=== PATIENT | female | born 1955 | race Caucasian/White ===

== ENCOUNTER → 2017-08-07 07:20 | Outpatient (CLI) | payer MEDICAID ==
[2015-11-26 09:48] VITALS: BMI 28.9
--- NOTE | ~2017-08-07 | ST ---
PATIENT:CARLOS TORRES ASIF MEDICAL RECORD: [id number] SEX: F LOCATION:[facility] ORDER #: ADMISSION DATE: 08/07/17 AGE OF PATIENT: 62 REFERRING PHYSICIAN: INTERPRETING PHYSICIAN: CHRISTOPHER AYALA MD DATE OF SERVICE: 08/07/2017 PROCEDURE: Nuclear stress test. INDICATION: Chest pain of unknown etiology. She was exercised on standard Lexiscan protocol with 31.9 mCi were injected at peak stress. Rest images were done with 12.6 mCi. FINDINGS: Gated SPECT reveals preserved ejection fraction at 60% with good wall motion and thickening and brightening throughout all segments. SPECT imaging Cardiolite was used as myocardial perfusion agent. There is reversibility anteriorly and apically. This includes the mid apical anterior segments as well as the apex itself. The degree of reversibility is moderate. The amount of myocardial involved is small to moderate. OVERALL IMPRESSION: 1. This is an abnormal nuclear stress test reversible ischemia anteriorly. 2. Gated SPECT reveals a preserved ejection fraction greater than 60%. In this patient with ongoing symptomatology, the current scan does suggest the presence of hemodynamically significant coronary artery disease. We will proceed with coronary angiography to follow up the study. TRANSINT:[id number] Voice Confirmation ID: [id number] DOCUMENT ID: [id number] CHRISTOPHER AYALA MD at 1630 CC: [id number] DICTATION DATE: 08/07/17 1205 PEARL TECHNICIAN: 08/07/17 1538 REG [facility] [address] [place] [address]
[~2017-08-07 07:20] MED LIST: ASPIRIN EC81 MG PO; ATIVAN2 MG PO; CLEOCIN HCL300 MG PO; FISH OIL 1,0001 CA1 PO; FLEXERIL10 MG PO; HYDROCHLOROTH12.5 M1 PO; HYDROCHLOROTHIA25 MG PO; HYDROCODONE-APA1 TAB PO; KLOR-CON 1010 MEQ PO; LIPITOR40 MG PO; PLAVIX75 MG PO; PRAVACHOL10 MG PO; PRILOSEC20 MG PO; ROBAXIN500 MG PO; SYNTHROID125 MCG PO; TENORMIN50 MG PO; ULTRAM50 MG PO; ZOLOFT100 MG PO
== END | disposition home or self-care (01) ==
LOC: D.NM 07:20
DX: R07.9 Chest pain, unspecified (principal); I25.10 Atherosclerotic heart disease of native coronary artery without angina pectoris

== ENCOUNTER 2017-08-21 08:51 | Outpatient (CLI) | payer MEDICAID ==
[~2017-08-21] VITALS: Ht 162.6 cm; Wt 73.6 kg
--- NOTE | ~2017-08-21 | HEMODYNAMI ---
PATIENT:CARLOS TORRES ASIF MEDICAL RECORD: [id number] : 55 LOCATION:[facility] ADMISSION DATE: 08/21/17 Generatedon:08/21/201711:09 Patient name: CARLOS TORRES Patient #: [id number] SSN: : 1955 Date of study: 08/21/2017 Page: Of Hemodynamic Procedure Report Patient Data Patient Demographics Procedure consent was obtained First Name: CARLOS Gender: Female Last Name: BRIAN : 1955 [facility] Initial: ASIF Age: 62 year(s) Patient #: [id number] Race: Unknown Additional ID: [id number] Contact details [address]: [address] [place] [address] State: [place] City: [place] Zip code: [address] Past Medical History Allergies Allergen Reaction Date Comments Reported Penicillins 11/26/2015 Penicillins 08/21/2017 Admission Admission Data Admission Date: 08/21/2017 Admission Time: 8:51 Admit Source: Other Procedure Procedure Types Cath Procedure Diagnostic Procedure [facility] w/Coronaries FFR/IVUS Intra-Coronary IVUS Initial Sedation Charges Moderate Sedation up to 15 minutes PCI Procedure AMI/SVG/KLYSTROM TUBE TESTER PTCA or Stent SVG-BMS/JENNIFER Initial Peripheral Cath Diagnostic Procedure Cath Peripheral Four Vessel Arteriogram Procedure Description Procedure Date Procedure Date: 08/21/2017 Procedure Start Time: 10:44 Procedure End Time: 11:08 Procedure Staff Name Function Johnson Lee MD Performing Physician Eileen Chau RT Monitor Berhane Salmeron RT Scrub Gage Mccullough RN Nurse Procedure Data Cath Procedure Fluoroscopy Diagnostic fluoroscopy Total fluoroscopy Time: 6.3 time: 6.3 min min Diagnostic fluoroscopy Total fluoroscopy dose: 551 dose: 551 mGy mGy Contrast Material Contrast Material Type Amount (ml) Isovue 370 116 Entry Location Entry Primary Successful Side Size Upsize Upsize Entry Closure Succes sful Closure Location (Fr) 1 (Fr) 2 (Fr) Remarks Device Remarks Femoral Right 5 Fr 6 Fr Exoseal artery Short Estimated blood loss: 10 ml Diagnostic catheters Device Type Used For End Catheter Placement MULTIPACK Pigtail 5 Fr LV Angiography catheter MULTIPACK JL 4.0 5Fr Left Coronary catheter Angiography MULTIPACK 3DRC 5Fr Internal mammary catheter arteriography DIAGNOSTIC AR 2 MOD 5 Fr SVG Angiography catheter ([id number]) MULTIPACK 3DRC 5Fr Cervical carotid catheter (common) arteriography MULTIPACK 3DRC 5Fr Vertebral (neck catheter and/or head) arteriography Procedure Complications No complications Procedure Medications Medication Administration Route Dosage 0.9% NaCl I.V. 100 ml/hr Oxygen etCO2 Nasal cannula 3 l/min Heparin Flush Bag added to field 2 bags (1000units/500ml NS) Lidocaine 2% added to field 20 Versed I.V. 2 mg Fentanyl I.V. 100 mcg Fentanyl I.V. 100 mcg Versed I.V. 2 mg Versed I.V. 1 mg Heparin Bolus I.V. 4000 units Versed I.V. 1 mg Hemodynamics Rest Heart Rate: 62 (bpm) Snapshots Pre Cath Intra NCS Post Cath Vital Signs Time Heart Resp SPO2 etCO2 NIBP (mmHg) Rhythm Pain Sedation Rate (ipm) (%) (mmHg) Status Level (bpm) 10:31:28 64 15 98 0 138/62(108) NSR 0 (11) 10(A) , No pain 10:36:13 63 12 97 40.6 133/58(97) NSR 0 (11) 10(A) , No pain 10:40:53 60 19 97 42.1 120/58(93) NSR 0 (11) 10(A) , No pain 10:45:32 70 17 95 30.8 99/63(90) NSR 0 (11) 10(A) , No pain 10:50:11 70 21 92 14.2 107/59(84) NSR 0 (11) 9(A) , No pain 10:54:49 70 13 91 0 110/65(81) NSR 0 (11) 9(A) , No pain 10:59:27 70 19 96 20.3 114/61(90) NSR 0 (11) 9(A) , No pain 11:04:06 71 20 96 33.8 106/60(72) NSR 0 (11) 10(A) , No pain 11:08:45 70 9 98 8.2 103/57(78) NSR 0 (11) 10(A) , No pain Medications Time Medication Route Dose Verified Delivered Reason Notes Effectiveness by by 10:35:04 0.9% NaCl I.V. 100 Gage Gage Per physician ml/hr Jamel Mccullough RN RN 10:35:14 Oxygen etCO2 3 Gage Gage Per physician Nasal l/min Jamel Mccullough cannula RN RN 10:35:27 Heparin Flush added 2 Gage Gage used for Bag to bags Jamel Mccullough procedure (1000units/500ml field RN RN NS) 10:35:39 Lidocaine 2% added 20ml Gage Gage for local to vial Lornahomi Mccullough anesthetic field RN RN 10:39:41 Versed I.V. 2 mg Gage Gage for sedation Jamel Mccullough RN RN 10:39:50 Fentanyl I.V. 100 Gage Gage for sedation mcg Jamel Mccullough RN RN 10:43:39 Fentanyl I.V. 100 Gage Gage for sedation mcg Jamel Mccullough RN RN 10:43:45 Versed I.V. 2 mg Gage Gage for sedation Jamel Mccullough RN RN 10:45:13 Versed I.V. 1 mg Gage Gage for sedation Jamel Mccullough RN RN 10:59:59 Heparin Bolus I.V. 4000 Gage Gage for units Jamel Mccullough anticoagulation RN RN 11:02:22 Versed I.V. 1 mg Gage Gage for sedation Jamel Mccullough RN unclaimed property officer Log Time Note 10:13:28 Informed consent obtained and on chart 10:13:31 Admit Source: Other 10:13:51 Diagnostic Cath status Elective 10:13:52 Time tracking: Regular hours (M-F 7:00 - 5:00) 10:13:56 Plan of Care:Hemodynamics will remain stable., Cardiac rhythm will remain stable., Comfort level will be maintained., Respiratory function will remain adequate., Patient/ family verbilizes understanding of procedure., Procedure tolerated without complication., Recovers from procedure without complications.. 10:15:43 H&P Date Dictated: 07/24/2017 Within 30 days and on chart., H&P Addendum completed by physician on day of procedure. (MUST COMPLETE FOR ALL OUTPATIENTS). 10:16:59 Berhane Salmeron RT(R) sent for patient. Start room use. 10:23:47 Patient received from Pre/Post Procedure Room to CCL 1 Alert and oriented. Tansferred to table in Supine position. 10:23:48 Warm blankets applied, and zack hugger turned on for patient comfort. 10:23:48 Correct patient and procedure confirmed by team. 10:23:49 ECG and BP/O2 sat monitors applied to patient. 10:23:50 Full Disclosure recording started 10:30:33 Vital chart was started 10:32:15 Rhythm: sinus rhythm 10:32:17 Pre-procedure instructions explained to patient. 10:32:18 Pre-op teaching completed and patient verbalized understanding. 10:32:20 Family in patients room. 10:32:22 Patient NPO since Midnight. 10:32:29 Patient allergic to Penicillins 10:35:04 0.9% NaCl 100 ml/hr I.V. was administered by Gage Mccullough RN; Per physician; 10:35:14 Oxygen 3 l/min etCO2 Nasal cannula was administered by Gage Mccullough RN; Per physician; 10:35:27 Heparin Flush Bag (1000units/500ml NS) 2 bags added to field was administered by Gage Mccullough RN; used for procedure; 10:35:39 Lidocaine 2% 20ml vial added to field was administered by Gage Mccullough RN; for local anesthetic; 10:35:54 Is the patient allergic to Iodine/contrast media? No. 10:35:57 Is patient on blood thinner?Yes 10:35:59 ACC The patient was administered the following blood thiners within the last 24 hours: ACCAspirin, ACCPlavix 10:36:01 Patient diabetic? No. 10:36:04 Previous problem with sedation/anesthesia? No ? 10:36:05 Snore? Yes 10:36:07 Sleep apnea? Yes 10:36:08 Deviated septum? No 10:36:08 Opens mouth fully? Yes 10:36:09 Sticks out tongue? Yes 10:36:12 Airway obstruction? No ? 10:36:15 Dentures? Yes In 10:36:18 Pre procedure: right dorsailis pedis pulse 2+ Normal; easily identifiable; not easily obliterated 10:36:21 Patient pain scale 0/10 ?. 10:36:27 IV patent on arrival in left forearm with 0.9% NaCl at [facility]. 10:36:30 Lab results completed and on chart. 10:36:35 Right groin area was prepped with chlora-prep and draped in sterile fashion 10:36:36 Alarms reviewed by R. N. 10:36:36 Sharps counted by scrub and verified by R.N. 10:36:41 Use device set Femoral Dx 10:36:42 ACIST Syringe (54695) opened to sterile field. 10:36:43 Bag Decanter (2002S) opened to sterile field. 10:36:43 Medline Cath Pack ([id number]) opened to sterile field. 10:36:44 DIAGNOSTIC WIRE .035 260cm J wire (043656) opened to sterile field. 10:36:45 ACIST Hand Control (06148) opened to sterile field. 10:36:45 ACIST Manifold (93501) opened to sterile field. 10:36:46 DIAGNOSTIC Multipack 5Fr catheter set ([id number]) opened to sterile field. 10:36:46 Tegaderm 4 x 4 (1626W) opened to sterile field. 10:36:47 PERCUTANEOUS ENTRY 19GA needle opened to sterile field. 10:36:48 SHEATH Prelude 5Fr 0.035 (NCY-1X-28-035) opened to sterile field. 10:39:11 Final Timeout: patient, procedure, and site verified with staff and physician. All members of the team are in agreement. 10:39:13 Right groin site verified by team. 10:39:15 Physical assessment completed. ASA score P 2 - A patient with mild systemic disease as per Johnson Lee MD. 10:39:19 Sedation plan: IV Moderate Sedation Medication:Versed, Fentanyl 10:39:40 Baseline sample Acquired. 10:39:41 Versed 2 mg I.V. was administered by Gage Mccullough RN; for sedation; 10:39:50 Fentanyl 100 mcg I.V. was administered by Gage Mccullough RN; for sedation; 10:42:38 Zero performed for pressure channel P1 10:43:35 Procedure started. 10:43:39 Fentanyl 100 mcg I.V. was administered by Gage Mccullough RN; for sedation; 10:43:45 Versed 2 mg I.V. was administered by Gage Mccullough RN; for sedation; 10:44:04 Local anesthetic to right femoral artery with Lidocaine 2% by Johnson Lee MD.INITIAL ACCESS ONLY 10:44:18 A 5 Fr sheath was inserted into the Right Femoral artery 10:45:13 Versed 1 mg I.V. was administered by Gage Mccullough RN; for sedation; 10:45:23 A MULTIPACK Pigtail 5 Fr catheter was advanced over the wire and used for LV Angiography. 10:45:52 LV gram done using YADAV 10:46:01 EF : 55 % 10:46:03 Injector settings: Ml/sec: 10, Volume: 20, 10:46:05 Catheter removed. 10:46:14 A MULTIPACK JL 4.0 5Fr catheter was advanced over the wire and used for Left Coronary Angiography. 10:47:16 Catheter removed. 10:48:20 A MULTIPACK 3DRC 5Fr catheter was advanced over the wire and used for Internal mammary arteriography. TO DAIG & LAD 10:48:56 Catheter removed. 10:49:57 A DIAGNOSTIC AR 2 MOD 5 Fr catheter ([id number]) was advanced over the wire and used for SVG Angiography. TO RCA 10:51:02 Catheter removed. 10:51:31 A MULTIPACK 3DRC 5Fr catheter was advanced over the wire and used for Cervical carotid (common) arteriography. 10:52:47 A MULTIPACK 3DRC 5Fr catheter was advanced over the wire and used for Vertebral (neck and/or head) arteriography. 10:53:07 Catheter removed. 10:53:12 Use device set [facility] PCI 10:53:15 INFLATOR Merit BasixCompak (FM3564) opened to sterile field. 10:53:21 CHOICE PT Extra Support 182cm wire ([id number]) opened to sterile field. 10:53:24 SHEATH Prelude 6Fr 0.035 (HSG-1O-74-035) opened to sterile field. 10:54:08 GUIDE 6FR AR 2.0 catheter (ZH1QN83) opened to sterile field. 10:54:18 Sheath upsized to a 6 Fr Short. 10:56:00 Moore Dalzell Eagleye IVUS Catheter (74320V) opened to sterile field. 10:56:15 6 Fr AR 2.0 guide catheter was inserted over the wire 10:57:53 CHOICE PT ES wire advanced. 10:58:32 IVUS catheter advanced over wire. 10:58:38 IVUS pass to RCA lesion performed. 10:58:46 IVUS catheter removed over wire. 10:59:59 Heparin Bolus 4000 units I.V. was administered by Gage Mccullough RN; for anticoagulation; 11:00:38 Place stent Inflation Number: 1 A JED RX 4.0 x 18 stent ([id number]) was prepped and advanced across the Aorta Right -> Dist RCA. The stent was deployed at 21 WALLACE for 0:12 (min:sec). 11:01:06 Stent catheter was removed intact over wire. 11:02:22 Versed 1 mg I.V. was administered by Gage Mccullough RN; for sedation; 11::58 Inflate balloon Inflation number: 2 A NC EUPHORA 4.0 x 12 balloon ([id number]) was prepped and advanced across the Aorta Right -> Dist RCA, then inflated to 21 WALLACE for 0:14 (min:sec). 11:03:12 Balloon removed over the wire. 11:03:12 Wire removed. 11:03:13 Guide catheter removed. 11:03:21 Sheath removed intact; hemostasis achieved with Exoseal to the Right Femoral artery. 11:03:23 Procedure ended.(Physican Out) 11:03:32 Fluoroscopy time 06.30 minutes. 11:03:44 Flurop Dose total: 551 11:03:44 Fluoroscopy dose: 551 mGy 11:03:47 Contrast amount:Isovue 370 116ml. 11:03:48 Sharps counted by scrub and verified by R.N. 11:03:50 Insertion/operative site no bleeding no hematoma. 11:03:53 Post-op/insertion site Right Femoral artery dressed using a 4 x 4 and Tegaderm. 11:03:56 Post right femoral artery:stable, clean and dry 11:03:57 Post Procedure Pulses reassessed and unchanged 11:04:00 Post-procedure physical assessment completed. ASA score P 2 - A patient with mild systemic disease as per Johnson Lee MD. 11:04:18 Post procedure rhythm: unchanged. 11:04:34 Estimated blood loss: 10 ml 11:04:36 Post procedure instruction explained to patient.Patient verbalizes understanding. 11:04:36 Patient needs reinforcement of post procedure teaching. 11:05:18 Procedure type changed to Cath procedure, Diagnostic procedure, LHC, LHC w/Coronaries, FFR/IVUS, Intra-Coronary IVUS Initial, Sedation Charges, Moderate Sedation up to 15 minutes, PCI procedure, AMI/SVG/KLYSTROM TUBE TESTER PTCA or Stent, SVG-BMS/JENNIFER Initial, Peripheral Cath Diagnostic Procedure, Cath Peripheral, Four Vessel Arteriogram 11:05:23 Procedure Complication : No complications 11:05:25 See physician's report for complete and final results. 11:05:33 EXOSEAL 6Fr (EX600) opened to sterile field. 11:07:08 Procedure and supply charges have been captured, reviewed, submitted and are correct. 11:08:08 Vital chart was stopped 11:08:16 Report given to Pre/Post Procedure Room. 11:08:19 Patient transfered to Pre/Post Procedure Room with Stretcher. 11:08:50 Procedure ended. 11:08:50 Full Disclosure recording stopped 11:08:54 End room use (Document Last) Intervention Summary Intervention Notes Time ActionType Lesion and Equipment Used Action# Pressure Duration Attributes 11:00:38 Place stent Aorta Right JED RX 4.0 x 1 21 00:12 -> Dist RCA 18 stent ([id number]) 11:02:58 Inflate Aorta Right NC EUPHORA 4.0 2 21 00:14 balloon -> Dist RCA x 12 balloon ([id number]) Device Usage Item Name Manufacture Quantity Catalog Number Hospital Part Current Minimal Lot# / Charge Number Stock Stock Serial# Code ACIST Syringe Acist 1 16079 [id number] 222162 [id number] 20 (96289) [employer] Bag Decanter Microtek 1 614975 87890 114643 5 () Medical Inc. Medline Cath Cardinal 1 [id number] 319075 31636 720921 5 [facility] ([id number]) DIAGNOSTIC WIRE St Tayo 1 098789 822710 044253 129631 30 .035 260cm J wire (782432) ACIST Hand Acist 1 18863 074418 261010 697497 5 Control (03043) [employer] Systems Inc ACIST Manifold Acist 1 67683 075519 643406 664285 5 (60367) [employer] Inc DIAGNOSTIC Cardinal 1 [id number] 261066 56343 137929 30 Multipack 5Fr Health catheter set (VF8839) Tegaderm 4 x 4 3M 1 1626W 239596 667348 689884 5 (1626W) PERCUTANEOUS Cook Medical 1 [id number] 674922 545643 5 ENTRY 19GA needle SHEATH Prelude Merit 1 QWJ-7G-74-035 775468 449313 973956 5 5Fr 0.035 Medical (PPE-1N-36-035) MULTIPACK Cardinal 1 770082 5 Pigtail 5 Fr Health catheter MULTIPACK JL Cardinal 1 271564 5 4.0 5Fr Health catheter MULTIPACK 3DRC Cardinal 1 856965 5 5Fr catheter Health DIAGNOSTIC AR 2 Cardinal 1 [id number] 790006 907504 761445 20 MOD 5 Fr Health catheter (825321L) INFLATOR Merit Merit 1 TD3222 467716 492830 251043 15 [employer] Medical (ZG4344) CHOICE PT Extra [place] 1 [id number] 337577 595396 781563 5 Support 182cm Scientific wire ([id number]) SHEATH Prelude Merit 1 VHF-9N-03-35 533387 8920649 360853 5 6Fr 0.035 Medical (BTY-1C-41-035) GUIDE 6FR AR Medtronic 1 [id number] 554654 68044 778982 1 2.0 catheter ([id number]) Moore Moore 1 [id number] 426744 468942 172026 8 Dalzell Eagleye IVUS Catheter (24632X) JED RX 4.0 x Medtronic 1 [id number] 853194 6668577 177481 5 [id number] 18 stent ([id number]) NC EUPHORA 4.0 Medtronic 1 [id number] 573482 486085 932383 1 [id number] x 12 balloon ([id number]) EXOSEAL 6Fr Cardinal 1 EX600 429410 438302 748452 10 (EX600) Health Signature Audit [place] Stage Time Signature Unsigned Intra-Procedure 08/21/2017 Eileen 11:09:04 AM Counts RT(R) Signatures Monitor : Eileen Signature : Counts RT Date : Time : [place] [address] [place] [address]
--- NOTE | ~2017-08-21 | OP ---
PATIENT NAME: CARLOS TORRES ASIF MEDICAL RECORD: [id number] :55 LOCATION:D.CAT ADMISSION DATE: SURGEON: CHRISTOPHER AYALA MD DATE OF OPERATION: 08/21/2017 PROCEDURES: 1. PTCA stent vein graft to RCA. 2. Intravascular ultrasound. 3. Vein graft angiography. 4. ALVARADO angiography. 5. Left heart catheterization. 6. Selective coronary angiography. 7. Left ventriculogram. INDICATION: Angina and coronary artery disease. PROCEDURE IN DETAIL: After informed consent was obtained and after a detailed description of risks, benefits as well as alternative therapies, the patient elected to proceed with angiogram and angioplasty. The right femoral area was prepped and draped in normal sterile fashion. The right femoral artery was cannulated via modified Seldinger technique with placement of 6-Uzbek sheath. All catheters exchanged through this sheath. FINDINGS: Left ventriculogram was performed in standard 30-degree YADAV view, reveals good cardiac wall motion throughout all segments. Overall ejection fraction estimated at 50% to 55%. SELECTIVE CORONARY ANGIOGRAPHY: 1. Left main is with no significant angiographic disease. 2. Left anterior descending is totally occluded. 3. Left circumflex is widely patent, previously placed stents are widely patent. 4. The right coronary artery is totally occluded. 5. Vein graft to the right coronary artery is patent; however, there is greater than 70% stenosis confirmed by intravascular ultrasound in the proximal aspect. PTCA STENT OF THE VEIN GRAFT TO THE RCA: The stent used was a 4.0 x 18 mm Dexter. Result was 0% residual stenosis. OVERALL IMPRESSION: Successful percutaneous transluminal coronary angioplasty stent of the vein graft to the right coronary artery going from greater than 70% initial stenosis to 0% residual stenosis. TRANSINT:[id number] Voice Confirmation ID: [id number] DOCUMENT ID: [id number] CHRISTOPHER AYALA MD at 1218 CC: [id number] DICTATION DATE: 08/21/17 1109 STOCK PLAN ADMINISTRATOR: 08/21/17 1413 DEP CLI 08/21/17 [place] [id number]
[~2017-08-21 08:51] MED LIST changes: -CLEOCIN HCL300 MG PO
[2017-08-21] MEDS ORDERED: CLEOCIN HCL300 MG PO (09:27)
[2017-08-21 09:43] VITALS: BP 133/60; Ht 162.6 cm; Wt 73.6 kg
[2017-08-21 09:48] LABS: BASOPHILS 0.6 % (0-2); HEMATOCRIT 42.7 % (36.0-48.0); HEMOGLOBIN 14.7 g/dL (12-16); IMMATURE GRANULOCYTES 0.1 % (0-5); LYMPHOCYTES 36.5 % (15-50); MCH 32.5 pg (26.0-34.0); MCHC 34.4 g/dL (31.0-37.0); MCV 94.3 fL (80.0-100.0); MEAN PLATELET VOLUME 9.8 fL (7.4-10.4); MONOCYTES 5.7 % (2-11); NEUTROPHILS 56.1 % (40-80); PLATELET COUNT 196 10x3/uL (130-400); RBC 4.53 10x6/uL (4.00-5.40); RDW 13.2 % (11.5-14.5)
[2017-08-21 10:02] LABS: ANION GAP 13.6 mmol/L (8-16); CALCIUM 8.9 mg/dL (8.5-10.1); CARBON DIOXIDE 26.8 mmol/L (21.0-32.0); POTASSIUM - SERUM 3.4 mmol/L (3.5-5.1)
== END 2017-08-21 16:06 ==
LOC: D.CATH 08:51
PROVIDERS: Internal Medicine Interventional Cardiology
DX: I25.119 Atherosclerotic heart disease of native coronary artery with unspecified angina pectoris (principal); Z01.812 Encounter for preprocedural laboratory examination

== ENCOUNTER 2019-03-14 08:43 | Outpatient (CLI) | payer MEDICAID ==
[~2019-03-14] VITALS: Ht 162.6 cm; Wt 73.6 kg
--- NOTE | ~2019-03-14 | OP ---
PATIENT NAME: CARLOS TORRES MEDICAL RECORD: [id number] :55 LOCATION:D.CAT ADMISSION DATE: SURGEON: CHRISTOPHER AYALA MD DATE OF OPERATION: 03/14/2019 PROCEDURES: 1. High pressure PTCA vein graft to RCA. 2. IFR vein graft to RCA. 3. IFR left circumflex. 4. Vein graft angiography. 5. ALVARADO angiography. 6. Left heart catheterization. 7. Left ventriculogram. INDICATION: Unstable angina and coronary artery disease. PROCEDURE IN DETAIL: After informed consent was obtained and after detailed description of risks, benefits as well as alternative therapies, the patient elected to proceed with angiogram and angioplasty. The right femoral area was prepped and draped in normal sterile fashion. Right femoral artery was cannulated via modified Seldinger technique with placement of 6-Jordanian sheath. All catheters exchanged through this sheath. FINDINGS: The left ventriculogram was performed in a standard 30-degree YADAV view, reveals good cardiac wall motion throughout all segments. Overall ejection fraction 55%. SELECTIVE CORONARY ANGIOGRAPHY: 1. Left main is with no significant angiographic disease. 2. Left anterior descending is totally occluded. 3. ALVARADO to the LAD is patent, distal LAD is widely patent. 4. Left circumflex has previously placed stent. There is questionable stenosis proximal to this; however, IFR was normal. 5. The right coronary artery is totally occluded. 6. Vein graft to the right coronary is patent. There is a previously placed stents proximally that appear to be under deployed due to the calcification and inability to fully expand these. There is at least 70% stenosis and IFR was abnormal at 0.88. High pressure PTCA of the proximal stented area. We used a 4.0 high pressure balloon to 25 atmospheres. Result was 0% residual stenosis improved expansion of the previously placed stents. OVERALL IMPRESSION: Successful high pressure percutaneous transluminal coronary angioplasty for in-stent restenosis going from 70% initial stenosis to 0% residual. TRANSINT:[id number] Voice Confirmation ID: [id number] DOCUMENT ID: [id number] OPERATIVE REPORT [id number] CARLOS TORRES CHRISTOPHER AYALA MD CC: [id number] DICTATION DATE: 03/14/19 140 RETURNED GOODS INSPECTOR: 03/14/192050 DEP CLI 03/14/19 [facility] [address] [place] [address]
--- NOTE | ~2019-03-14 | HEMODYNAMI ---
PATIENT:CARLOS TORRES MEDICAL RECORD: [id number] : 55 LOCATION:[facility] ADMISSION DATE: 03/14/19 Generatedon:03/14/201914:13 Patient name: CARLOS TORRES Patient #: [id number] SSN: [id number] : 1955 Date of study: 03/14/2019 Page: Of Hemodynamic Procedure Report Patient Data Patient Demographics Procedure consent was obtained First Name: CARLOS Gender: Female Last Name: BRIAN : 1955 [facility] Initial: ASIF Age: 64 year(s) Patient #: [id number] Race: SSN: [id number] Additional ID: [id number] Contact details [address]: [address] [place] [address] State: [place] City: [place] Zip code: [address] Past Medical History Allergies Allergen Reaction Date Comments Reported Penicillins 11/26/2015 Penicillins 08/21/2017 Other allergy 03/14/2019 Penicillins Shellfish Admission Admission Data Admission Date: 03/14/2019 Admission Time: 8:43 Arrival Date: 03/14/2019 Arrival Time: 0:00 Admit Source: Other Insurance Payor: Medicaid [facility] #: [id number] Height (in.): 162.56 BSA: 2.51 (m2) Height (cm.): 412.9 BMI: 1.96 (kg/m2) Weight (lbs.): 73.63 Weight (kg.): 33.4 Lab Results Lab Result Date: 03/14/2019 Lab Result Time: 0:00 Biochemistry Name Units Result Min Max BUN mg/dl 19 --(----)*- 7 18 Creatinine mg/dl 0.8 --(-*--)-- 0.6 1.3 eGFR ml/min 76.43159 *-(----)-- 90 120 NONAFRICAN CBC Name Units Result Min Max Hematocrit % 43.1 --(*---)-- 42 54 Hemoglobin g/dl 15 --(-*--)-- 13.5 17.5 Procedure Procedure Types Cath Procedure Diagnostic Procedure [facility] w/Coronaries FFR/IVUS FFR Initial FFR Additional Sedation Charges Moderate Sedation up to 15 minutes PCI Procedure Coronary Stent Coronary Stent Initial Hemochron ACT Test Procedure Description Procedure Date Procedure Date: 03/14/2019 Procedure Start Time: 13:39 Procedure End Time: 14:10 Procedure Staff Name Function Johnson Lee MD Performing Physician Galen Linares RT Monitor Norberto Wen RN Nurse Rosamaria Juan RT Scrub Nany Ballard RT Monitor Indication Angina Coronary risk factors Dyspnea Pulmonary hypertension Procedure Data Cath Procedure Fluoroscopy Diagnostic fluoroscopy Total fluoroscopy Time: 9 time: 9 min min Contrast Material Contrast Material Type Amount (ml) Isovue 370 95 Entry Location Entry Primary Successful Side Size Upsize Upsize Entry Closure Succes sful Closure Location (Fr) 1 (Fr) 2 (Fr) Remarks Device Remarks Femoral Right 5 Fr 6 Fr Exoseal artery Short Estimated blood loss: 10 ml Diagnostic catheters Device Type Used For End Catheter Placement MULTIPACK Pigtail 5 Fr Procedure catheter MULTIPACK JL 4.0 5Fr Procedure catheter MULTIPACK 3DRC 5Fr Procedure catheter DIAGNOSTIC AR MOD 5Fr Procedure Catheter ([id number]) Procedure Complications No complications Procedure Medications Medication Administration Route Dosage Oxygen etCO2 Nasal cannula 2 l/min Lidocaine 2% added to field 20 Heparin Flush Bag added to field 2 bags (1000units/500ml NS) 0.9% NaCl I.V. 100 ml/hr Versed I.V. 2 mg Fentanyl I.V. 100 mcg Versed I.V. 2 mg Fentanyl I.V. 50 mcg Versed I.V. 2 mg Fentanyl I.V. 50 mcg Heparin Bolus I.V. 4000 units Hemodynamics Rest BSA: 2.51 (m2) HGB: 15 (g/dl) O2 Consumption: Estimated: 234.69 (ml/min) O2 Cons umption indexed: Estimated:93.5 (ml/min/m) Heart Rate: 69 (bpm) Snapshots Pre Cath Intra NCS Post Cath Vital Signs Time Heart Resp SPO2 etCO2 NIBP (mmHg) Rhythm Pain Sedation Rate (ipm) (%) (mmHg) Status Level (bpm) 13:18:36 69 20 96 0 131/67(98) NSR 0 (11) 10(A) , No pain 13:22:50 71 12 96 0 132/75(115) NSR 0 (11) 10(A) , No pain 13:27:06 71 12 96 23.8 138/68(109) NSR 0 (11) 10(A) , No pain 13:31:24 72 15 96 17.1 136/68(105) NSR 0 (11) 10(A) , No pain 13:35:42 76 16 96 32.8 126/69(108) NSR 0 (11) 10(A) , No pain 13:39:56 71 21 95 27.6 121/68(94) NSR 0 (11) 10(A) , No pain 13:44:08 72 18 94 11.1 122/64(99) NSR 0 (11) 9(A) , No pain 13:46:21 74 16 95 8.2 118/70(90) NSR 0 (11) 9(A) , No pain 13:50:33 73 18 95 10.4 120/66(95) NSR 0 (11) 9(A) , No pain 13:54:47 73 19 95 29.8 117/61(90) NSR 0 (11) 9(A) , No pain 13:58:57 74 19 95 25.3 115/68(89) NSR 0 (11) 10(A) , No pain 14:03:09 78 10 94 30.5 100/60(78) NSR 0 (11) 10(A) , No pain 14:07:12 75 12 95 16.4 116/66(89) NSR 0 (11) 10(A) , No pain Medications Time Medication Route Dose Verified Delivered Reason Notes Effectiveness by by 13:24:43 Oxygen etCO2 2 Johnson Buffie used for Nasal l/min Jesus Wen RN procedure cannula 13:24:49 Lidocaine 2% added 20ml Johnson Buffie used for to vial Jesus Wen RN procedure field 13:24:54 Heparin Flush added 2 Johnson Buffie used for Bag to bags Jesus Wen RN procedure (1000units/500ml field NS) 13:25:02 0.9% NaCl I.V. 100 Johnson Buffie Per physician ml/hr Jesus Wen RN 13:37:01 Versed I.V. 2 mg Johnson Buffie for sedation Jesus Wen RN 13:37:07 Fentanyl I.V. 100 Johnson Buffie for sedation mcg Jesus Wen RN 13:40:20 Versed I.V. 2 mg Johnson Buffie for sedation Jesus Wen RN 13:40:24 Fentanyl I.V. 50 Johnson Buffie for sedation mcg Jesus Wen RN 13:47:13 Versed I.V. 2 mg Johnson Buffie for sedation Jesus Wen RN 13:47:16 Fentanyl I.V. 50 Johnson Buffie for sedation mcg Jesus Wen RN 13:59:01 Heparin Bolus I.V. 4000 Johnson Buffie for units Jesus Wen RN anticoagulation Procedure Log Time Note 12:55:52 Galen Linares RT(R) sent for patient. Start room use. 13:16:04 Admit Source: Other 13:16:38 Procedure Status Elective Heart Cath (OP). 13:17:06 Time tracking: Regular hours (M-F 7:00 - 5:00) 13:17:15 Plan of Care:Hemodynamics will remain stable., Cardiac rhythm will remain stable., Comfort level will be maintained., Respiratory function will remain adequate., Patient/ family verbilizes understanding of procedure., Procedure tolerated without complication., Recovers from procedure without complications.. 13:17:20 Patient received from Pre/Post Procedure Room to CCL 2 Alert and oriented. Tansferred to table in Supine position. 13:17:23 Signed procedure consent form obtained from patient. 13:17:24 Warm blankets applied, and zack hugger turned on for patient comfort. 13:17:25 Correct patient and procedure confirmed by team. 13:17:25 ECG and BP/O2 sat monitors applied to patient. 13:17:27 Baseline sample Acquired. 13:17:27 Vital chart was started 13:17:30 Rhythm: sinus rhythm 13:17:31 Full Disclosure recording started 13:17:45 H&P Date Dictated: 03/11/2019 Within 30 days and on chart.. 13:17:46 Pre-procedure instructions explained to patient. 13:17:47 Pre-op teaching completed and patient verbalized understanding. 13:17:50 Family in waiting room. 13:17:51 Patient NPO since Midnight. 13:20:48 Is the patient allergic to Iodine/contrast media? No. 13:20:51 Was the patient premedicated? Yes 13:21:29 Lab Result : BUN 19 mg/dl 13:: Lab Result : eGFR NONAFRICAN 76.84453 ml/min 13::29 Lab Result : Creatinine 0.8 mg/dl 13::29 Lab Result : Hemoglobin 15 g/dl 13:21:29 Lab Result : Hematocrit 43.1 % 13:21:34 Lab results completed and on chart. 13:21:50 Stress Test: no; N/A ? 13:21:52 Risk of Mortality: .1 13:21:54 Risk of blood transfusion: .1 13:21:57 Risk of SALUD: 1.3 13:22:03 Right groin area was prepped with chlora-prep and draped in sterile fashion 13:22:04 Alarms reviewed by R. N. 13:22:05 Sharps counted by scrub and verified by R.N. 13:22:09 Baseline sample Acquired. 13:22:26 Is patient on blood thinner?Yes 13:22:35 ACC The patient was administered the following blood thiners within the last 24 hours: ACCPlavix 13:22:38 Patient diabetic? No. 13:22:40 If diabetic: On Metformin? N/A 13:22:42 Patient not . Patient is over age 55. 13:22:43 ----Pre-sedation anethsthesia assessment.---- 13:22:47 Previous problem with sedation/anesthesia? No ? 13:22:49 Snore? Yes 13:22:52 Sleep apnea? Yes 13:22:54 Deviated septum? No 13:22:55 Opens mouth fully? Yes 13:22:56 Sticks out tongue? Yes 13:22:59 Airway obstruction? No ? 13:23:04 Dentures? Yes in tight 13:23:08 Pre procedure: right dorsailis pedis pulse 2+ Normal; easily identifiable; not easily obliterated 13:23:12 Patient pain scale 0/10 ?. 13:23:19 IV patent on arrival in left antecubital with 0.9% NaCl at O. 13:23:38 Use device set Femoral Dx 13:23:39 ACIST Syringe (29755) opened to sterile field. 13:23:40 Bag Decanter (2001S) opened to sterile field. 13:23:41 Medline Cath Pack ([id number]) opened to sterile field. 13:23:42 ACIST Hand Control (15622) opened to sterile field. 13:23:43 ACIST Manifold (17264) opened to sterile field. 13:23:44 Tegaderm 4 x 4 (1626W) opened to sterile field. 13:23:46 SHEATH 5FR Waggoner (ENV251) opened to sterile field. 13:23:47 EMERALD Guide Wire (629-255) opened to sterile field. 13:23:51 DIAGNOSTIC Multipack 5Fr catheter set (HZ4301) opened to sterile field. 13:24:37 Diagnostic Cath Status : Elective 13:24:43 Oxygen 2 l/min etCO2 Nasal cannula was administered by Norberto Wen RN; used for procedure; Verbal order read back and verified. 13:24:49 Lidocaine 2% 20ml vial added to field was administered by Norberto Wen RN; used for procedure; Verbal order read back and verified. 13:24:54 Heparin Flush Bag (1000units/500ml NS) 2 bags added to field was administered by Norberto Wen RN; used for procedure; Verbal order read back and verified. 13:25:02 0.9% NaCl 100 ml/hr I.V. was administered by Norberto Wen RN; Per physician; Verbal order read back and verified. 13:26:44 Patient Height : 162.56 inches 13:26:50 Patient Weight : 73.63 lbs 13:26:52 Arrival Date: 03/14/2019 12:00:00 AM 13:26:57 Insurance Payor : Medicaid 13:27:31 Indication : Angina 13:27:39 Indication : Coronary risk factors 13:27:46 Indication : Dyspnea 13:27:53 Indication : Pulmonary hypertension 13:28:45 Patient allergic to Other allergyPenicillins Shellfish 13:36:29 Physician arrived 13:36:29 --------ALL STOP TIME OUT------ 13:36:30 Final Timeout: patient, procedure, and site verified with staff and physician. All members of the team are in agreement. 13:36:31 Right groin site verified by team. 13:36:35 Fire Safety Assessment: A--An alcohol-based skin anteseptic being used preoperatively., C--Open oxygen or nitrous oxide is being used., D--An ESU, laser, or fiber-optic light is being used. 13:36:44 Physical assessment completed. ASA score P 2 - A patient with mild systemic disease as per Johnson Lee MD. 13:37:01 Versed 2 mg I.V. was administered by Norberto Wen RN; for sedation; Verbal order read back and verified. 13:37:07 Fentanyl 100 mcg I.V. was administered by Norberto Wen RN; for sedation; Verbal order read back and verified. 13:37:08 2) 60-89 Mildly reduced kidney function, and other findings (as for stage 1) point to kidney disease. 13:37:18 Maximum allowable contrast dose (3.7 X eGFR X 0.75)211 ml. 13:37:22 Sedation plan: IV Moderate Sedation Medication:Versed, Fentanyl 13:38:49 Procedure started. 13:39:43 Local anesthetic to right femoral artery with Lidocaine 2% by Johnson Lee MD.INITIAL ACCESS ONLY 13:40:20 Versed 2 mg I.V. was administered by Norberto Wen RN; for sedation; Verbal order read back and verified. 13:40:24 Fentanyl 50 mcg I.V. was administered by Norberto Wen RN; for sedation; Verbal order read back and verified. 13:40:31 A 5 Fr sheath was inserted into the Right Femoral artery 13:40:41 A MULTIPACK Pigtail 5 Fr catheter was advanced over the wire and used for Procedure. 13:42:47 LV gram done using YADAV 13:42:54 EF : 60 % 13:42:55 Catheter removed. 13:42:59 A MULTIPACK JL 4.0 5Fr catheter was advanced over the wire and used for Procedure. 13:43:02 LCA angiography performed. 13:43:04 Catheter removed. 13:43:10 A MULTIPACK 3DRC 5Fr catheter was advanced over the wire and used for Procedure. 13:44:30 Zero performed for pressure channel P1 13:44:49 RCA angiography performed. 13:44:52 ALVARADO to LAD angiography performed. 13:45:19 Catheter removed. 13:46:09 A DIAGNOSTIC AR MOD 5Fr Catheter (124288D) was advanced over the wire and used for Procedure. 13:46:17 SVG to RCA angiography performed. 13:47:13 Versed 2 mg I.V. was administered by Norberto Wen RN; for sedation; Verbal order read back and verified. 13:47:16 Fentanyl 50 mcg I.V. was administered by Norberto Wen RN; for sedation; Verbal order read back and verified. 13:47:16 Catheter removed. 13:47:24 Proceeding to intervention. 13:47:51 Sheath upsized to a 6 Fr Short. 13:47:57 Newport Verrata Plus pressure wire (73130Y) opened to sterile field. 13:47:58 GUIDE 6FR XBLAD 3.5 catheter ([id number]) opened to sterile field. 13:47:59 INFLATOR Merit BasixCompak (PS1299) opened to sterile field. 13:48:00 SHEATH 6FR Waggoner (ABN881) opened to sterile field. 13:48:03 GUIDE 6FR AR 2.0 catheter ([id number]) opened to sterile field. 13:48:21 6 Fr xblad 3.5 guide catheter was inserted over the wire 13:48:50 FFR/IFR wire advanced. 13:48:51 Wire advanced across lesion. 13:52:08 mCirc lesion measured at .95 with IFR 13:52:56 Wire removed. 13:52:58 Guide catheter removed. 13:53:17 GUIDE 6FR AR 2.0 catheter (IA9JE86) opened to sterile field. 13:53:33 FFR/IFR wire advanced. 13:54:23 Wire advanced across lesion. 13:55:27 Guide catheter removed. 13:55:29 Wire removed. 13:56:14 GUIDE 6FR AR 1.0 catheter (CH4XE97) opened to sterile field. 13:56:36 FFR/IFR wire advanced. 13:57:48 Wire advanced across lesion. 13:58:09 mRCA lesion measured at .88 with IFR 13:59:01 Heparin Bolus 4000 units I.V. was administered by Norberto Wen RN; for anticoagulation; Verbal order read back and verified. 13:59:58 Inflate balloon Inflation number: 1 A NC EUPHORA 4.0 x 15 balloon ([id number]) was prepped and advanced across the Mid RCA , then inflated to 15 WALLACE for 0:00 (min:sec) . 14:00:37 Inflation number: 2 The NC EUPHORA 4.0 x 15 balloon ([id number]) was reinflated across the Mid RCA , to 19 WALLACE for 0:00 (min:sec) . 14:01:44 Inflation number: 3 The NC EUPHORA 4.0 x 15 balloon ([id number]) was reinflated across the Mid RCA , to 25 WALLACE for 0:00 (min:sec) . 14:02:31 Wire removed. 14:02:35 Stent catheter was removed intact over wire. 14:02:38 Guide catheter removed. 14:02:44 EXOSEAL 5Fr (EX500) opened to sterile field. 14:03:10 Sheath removed intact; hemostasis achieved with Exoseal to the Right Femoral artery. 14:03:15 Procedure ended.(Physican Out) 14:03:29 Fluoroscopy time 09.00 minutes. 14:03:40 Dose Area Product 98592 mGy/cm. 14:03:51 Contrast amount:Isovue 370 95ml. 14:03:54 Maximum allowable dose exceeded? No. 14:03:55 Sharps counted by scrub and verified by R.N. 14:04:03 Post-op/insertion site Right Femoral artery dressed using a 4 x 4 and Tegaderm. 14:04:08 Post right femoral artery:stable, soft, clean and dry 14:04:11 Post Procedure Pulses reassessed and unchanged 14:04:14 Post procedure: right dorsailis pedis pulse 2+ Normal; easily identifiable; not easily obliterated. 14:04:18 Post-procedure physical assessment completed. ASA score P 2 - A patient with mild systemic disease as per Johnson Lee MD. 14:04:22 Post procedure rhythm: unchanged. 14:04:25 Estimated blood loss: 10 ml 14:04:27 Post procedure instruction explained to patient.Patient verbalizes understanding. 14:04:29 Patient needs reinforcement of post procedure teaching. 14:06:12 Procedure type changed to Cath procedure, Diagnostic procedure, LHC, LHC w/Coronaries, FFR/IVUS, FFR Initial, FFR Additional, Sedation Charges, Moderate Sedation up to 15 minutes, PCI procedure, Coronary Stent, Coronary Stent Initial, Hemochron ACT Test 14:09:43 Procedure and supply charges have been captured, reviewed, submitted and are correct. 14:09:48 Procedure Complication : No complications 14:09:50 Vital chart was stopped 14:09:[address] [facility] Findings: MVD- PCI performed (see procedure note) 14:10:05 ACT drawn and resulted at 227 seconds. (normal therapeutic range 180-240 seconds). 14:10:17 Operative report dictated upon procedure completion. 14:10:18 See physician's report for complete and final results. 14:10:30 Report given to Pre/Post Procedure Room. 14:10:34 Patient transfered to Pre/Post Procedure Room with Stretcher. 14:10:37 Procedure ended. 14:10:37 Full Disclosure recording stopped 14:11:45 End room use (Document Last) 14:11:56 End room use (Document Last) 14:12:30 End room use (Document Last) Intervention Summary Intervention Notes Time ActionType Lesion and Equipment Action# Pressure Duration Attributes Used 13:59:58 Inflate Mid RCA NC EUPHORA 1 15 00:00 balloon 4.0 x 15 balloon ([id number]) 14:00:37 Reinflate Mid RCA NC EUPHORA 2 19 00:00 balloon 4.0 x 15 balloon ([id number]) 14:01:44 Reinflate Mid RCA NC EUPHORA 3 25 00:00 balloon 4.0 x 15 balloon ([id number]) Device Usage Item Name Manufacture Quantity Catalog Hospital Part Current Mini [facility] Lot# / Number Charge Number Stock Stock Serial# Code ACIST Acist 1 98628 798389 719612 058148 20 Syringe Medical (68363) Systems Inc Bag Decanter Microtek 1 2001S 266030 29345 835600 5 (2001S) Medical Inc. Medline Cath Medline 1 [id number] 812646 73585 691374 5 Pack ([id number]) ACIST Hand Acist 1 29451 464437 329053 138374 5 Control Medical (16756) Systems Inc ACIST Acist 1 14787 175771 056972 253945 5 Manifold Medical (95852) Systems Inc Tegaderm 4 x 3M 1 1626W 005372 946135 732129 5 4 (1626W) SHEATH 5FR Terumo 1 AMF747 001002 688049 430038 5 Waggoner (NRF364) EMERALD Cardinal 1 502-455 673723 102941 419672 5 Guide Wire Health (502455) DIAGNOSTIC Cardinal 1 LB0600 426835 52905 421871 30 Multipack Health 5Fr catheter set (TS8996) MULTIPACK Cardinal 1 993311 5 Pigtail 5 Fr Health catheter MULTIPACK JL Cardinal 1 484194 5 4.0 5Fr Health catheter MULTIPACK Cardinal 1 588603 5 3DRC 5Fr Health catheter DIAGNOSTIC Cardinal 1 [id number] 989647 514839 012513 15 AR MOD 5Fr Health Catheter (436046M) Newport Newport 1 48780V 679113 553322614 597891 5 Verrata Plus pressure wire (49791R) GUIDE 6FR Cardinal 1 08832130 830460 646133 703209 10 XBLAD 3.5 Health catheter (78261031) INFLATOR [facility] 1 QZ4111 162430 248107 262180 15 [facility] Medical BasixCompak (MI3658) SHEATH 6FR Terumo 1 PAN449 279256 068756 311397 40 Waggoner (DSR951) GUIDE 6FR AR Medtronic 2 HY9VF17 898083 23892 668771 1 2.0 catheter (PW2OR71) GUIDE 6FR AR Medtronic 1 IT4MS48 140590 31689 620087 1 1.0 catheter (UE1YP73) NC EUPHORA Medtronic 1 [id number] 570778 061136 806000 1 [id number] 4.0 x 15 balloon ([id number]) EXOSEAL 5Fr Cardinal 1 EX500 413994 750660 965068 10 (EX500) Health Signature Audit [place] Stage Time Signature Unsigned Intra-Procedure 03/14/2019 Nany Ballard 2:13:06 PM RT(R) Intra-Procedure 03/14/2019 Norberto Wen RN 2:13:33 PM Intra-Procedure 03/14/2019 Johnson Lee 2:13:50 PM Signatures Performing Physician : Signature : Johnson Lee MD Date : Time : Monitor : Galen Suit RT Signature : Date : Time : Nurse : Buffie Wen RN Signature : Date : Time : Monitor : Nany Young Signature : RT Date : Time : [place] [address] [place] [address]
[~2019-03-14 08:43] MED LIST changes: +CLEOCIN HCL300 MG PO
[2019-03-14] MEDS ORDERED: ULTRAM50 MG PO (09:49)
[2019-03-14] MEDS ORDERED: FUROSEMIDE20 MG PO (09:50)
[2019-03-14] MEDS ORDERED: ZANAFLEX4 MG PO (09:50)
[2019-03-14 10:01] VITALS: BP 120/60; Ht 162.6 cm; Wt 73.6 kg
[2019-03-14 10:24] LABS: BASOPHILS 0.5 % (0-2); EOSINOPHILS 0.5 % (0-7); HEMATOCRIT 43.1 % (36.0-48.0); IMMATURE GRANULOCYTES 0.1 % (0-5); MCH 31.4 pg (26.0-34.0); MCHC 34.8 g/dL (31.0-37.0); MCV 90.4 fL (80.0-100.0); MONOCYTES 4.5 % (2-11); NEUTROPHILS 65.4 % (40-80); RBC 4.77 10x6/uL (4.00-5.40); RDW 12.7 % (11.5-14.5); WBC 8.1 10x3/uL (4.8-10.8)
[2019-03-14 10:25] LABS: PLATELET COUNT 241 10x3/uL (130-400)
[2019-03-14 10:28] LABS: ALT (SGPT) 32 U/L (10-68); CALC OSMOLALITY 288 mosm/kg (275-300); CALCIUM 9.1 mg/dL (8.5-10.1); CARBON DIOXIDE 27.4 mmol/L (21.0-32.0); CHLORIDE - SERUM 103 mmol/L (98-107); CHOL - HDL RATIO 4.4 ratio (2.3-4.1); CHOLESTEROL, TOTAL 206 mg/dL (0-200); CREATININE - SERUM 0.8 mg/dL (0.6-1.3); GLUCOSE 113 mg/dL (74-106); HDL CHOLESTEROL 47 mg/dL (32-96); LDL CHOLESTEROL 137 mg/dL (0-100); LDL-HDL RATIO 2.9 ratio (1.5-3.5); SODIUM 144 mmol/L (136-145); TRIGLYCERIDE 110 mg/dL (30-200); UREA NITROGEN 15 mg/dL (7-18); eGFR NON AFRICAN AMERICAN 76 mL/min (90-120)
[2019-03-14 10:43] LABS: POTASSIUM - SERUM 2.4 mmol/L (3.5-5.1)
--- NOTE | 2019-03-14 14:22 | NUR ---
PT ARRIVED BY STRETCHER. PLACED ON MONITORS. ASSESSMENT COMPLETED. FAMILY AT BEDSIDE. DR. AYALA ROUNDED AND SPOKE WITH PT'S FAMILY.
--- NOTE | 2019-03-14 14:38 | NUR ---
RIGHT GROIN DRESSING C/D/I. NO S/S OF HEMATOMA NOTED. CALL LIGHT WITHIN REACH. FAMILY AT BEDSIDE.
--- NOTE | 2019-03-14 15:15 | NUR ---
PT'S FAMILY AT BEDSIDE HELPING HER EAT. SHE DENIES NAUSEA/PAIN AT THIS TIME. RIGHT GROIN DRESSING C/D/I. NO S/S OF HEMATOMA NOTED. CALL LIGHT WITHIN REACH.
--- NOTE | 2019-03-14 15:45 | NUR ---
RIGHT GROIN DRESSING C/D/I. NO S/S OF HEMATOMA NOTED. CALL LIGHT WITHIN REACH. FAMILY AT BEDSIDE. VSS.
--- NOTE | 2019-03-14 16:18 | NUR ---
PT RESTING COMFORTABLY. VSS. CALL LIGHT WITHIN REACH. RIGHT GROIN DRESSING C/D/I. NO S/S OF HEMATOMA NOTED. FAMILY AT BEDSIDE. RIGHT PEDAL PULSE PALPABLE.
--- NOTE | 2019-03-14 17:00 | NUR ---
RIGHT GROIN DRESSING C/D/I. NO S/S OF HEMATOMA NOTED. HEAD OF BED INC TO 30 DEGREES. TOLERATED WELL. FAMILY AT BEDSIDE. VSS.
--- NOTE | 2019-03-14 17:32 | NUR ---
RIGHT GROIN DRESSING C/D/I. NO S/S OF HEMATOMA NOTED. PIV D/C'D WITH CATH TIP INTACT. TOLERATED WELL. PT UP AND DRESSED WITH ASSIST. AMBULATED TO RESTROOM AND VOIDED WITHOUT DIFFICULTY. STEADY GAIT NOTED.
--- NOTE | 2019-03-14 17:43 | NUR ---
DISCUSSED DISCHARGE INSTRUCTIONS WITH PT AND PT'S FAMILY. THEY VOICED UNDERSTANDING. PT TAKEN OUT TO VEHICLE BY WHEELCHAIR. NO S/S OF DISTRESS NOTED. ALL BELONGINGS AND PAPERWORK IN HAND.
== END 2019-03-14 17:43 | disposition home or self-care (01) ==
LOC: D.CATH 08:43
PROVIDERS: ATTEND Internal Medicine Interventional Cardiology
DX: I25.110 Atherosclerotic heart disease of native coronary artery with unstable angina pectoris (principal); R06.02 Shortness of breath; I10 Essential (primary) hypertension; E78.5 Hyperlipidemia, unspecified; Z72.0 Tobacco use; I34.0 Nonrheumatic mitral (valve) insufficiency; I36.8 Other nonrheumatic tricuspid valve disorders; M79.7 Fibromyalgia; R42 Dizziness and giddiness; R07.9 Chest pain, unspecified

== ENCOUNTER 2019-04-24 18:43 | Emergency (ER) | payer MEDICAID ==
[~2019-04-24] VITALS: Ht 162.6 cm; Wt 63.6 kg
[~2019-04-24 18:43] MED LIST changes: +FUROSEMIDE20 MG PO; +ZANAFLEX4 MG PO
[2019-04-24 18:48] VITALS: Ht 162.6 cm; Wt 63.6 kg
[2019-04-24 19:14] LABS: BASOPHILS 0.5 % (0-2); EOSINOPHILS 1.3 % (0-7); HEMATOCRIT 40.4 % (36.0-48.0); HEMOGLOBIN 13.6 g/dL (12-16); IMMATURE GRANULOCYTES 0.2 % (0-5); LYMPHOCYTES 42.9 % (15-50); MCH 31.4 pg (26.0-34.0); MCHC 33.7 g/dL (31.0-37.0); MCV 93.3 fL (80.0-100.0); MEAN PLATELET VOLUME 9.2 fL (7.4-10.4); MONOCYTES 5.2 % (2-11); NEUTROPHILS 49.9 % (40-80); PLATELET COUNT 221 10x3/uL (130-400); RBC 4.33 10x6/uL (4.00-5.40)
[2019-04-24 19:25] LABS: CALC OSMOLALITY 283 mosm/kg (275-300); CALCIUM 8.5 mg/dL (8.5-10.1); CARBON DIOXIDE 31.1 mmol/L (21.0-32.0); CHLORIDE - SERUM 103 mmol/L (98-107); CREATININE - SERUM 0.9 mg/dL (0.6-1.3); GLUCOSE 129 mg/dL (74-106); POTASSIUM - SERUM 3.1 mmol/L (3.5-5.1); SODIUM 142 mmol/L (136-145); UREA NITROGEN 11 mg/dL (7-18); eGFR NON AFRICAN AMERICAN 67 mL/min (90-120)
[2019-04-24 19:42] LABS: ALBUMIN 3.3 g/dL (3.4-5.0); ALKALINE PHOSPHATASE 76 U/L (46-116); ALT (SGPT) 25 U/L (10-68); AMYLASE - SERUM 34 U/L (25-115); BILIRUBIN - TOTAL 0.17 mg/dL (0.2-1.3); CKMB 0.7 U/L (0.0-3.6); CREATINE KINASE 39 UL (21-215); LIPASE 280 U/L (73-393); MAGNESIUM - SERUM 2.1 mg/dL (1.8-2.4); PROTEIN - SERUM 6.8 g/dL (6.4-8.2)
[2019-04-24 19:45] LABS: TROPONIN-I < 0.017 ng/mL (0.000-0.060)
[2019-04-24 19:49] LABS: APPEARANCE CLEAR (CLEAR); COLOR STRAW (YELLOW); GLUCOSE NEGATIVE (NEGATIVE); KETONE NEGATIVE (NEGATIVE); NITRITE NEGATIVE (NEGATIVE); PROTEIN NEGATIVE (NEGATIVE); SPECIFIC GRAVITY 1.015 (1.005-1.020)
[2019-04-24 19:50] LABS: BILIRUBIN NEGATIVE (NEGATIVE); UROBILINOGEN NORMAL (NORMAL)
[2019-04-25] MEDS ORDERED: FLAGYL500 MG PO (00:05)
[2019-04-25] MEDS ORDERED: LEVOFLOXACIN500 MG PO (00:05)
[2019-04-25] MEDS ORDERED: PROMETHAZINE W473 ML PO (00:07)
[2019-04-25 00:51] VITALS: BP 141/72
== END 2019-04-25 00:51 | disposition home or self-care (01) ==
LOC: D.ER 18:43
PROVIDERS: Family Medicine
DX: K57.32 Diverticulitis of large intestine without perforation or abscess without bleeding (principal); E87.6 Hypokalemia; R93.89 Abnormal findings on diagnostic imaging of other specified body structures; I11.0 Hypertensive heart disease with heart failure; I50.9 Heart failure, unspecified; K21.9 Gastro-esophageal reflux disease without esophagitis; E07.9 Disorder of thyroid, unspecified; R51 Headache

== ENCOUNTER → 2019-09-05 08:05 | Outpatient (CLI) | payer OTHER ==
[2019-04-24 18:48] VITALS: BMI 24.0
[~2019-09-05 08:05] MED LIST changes: +FLAGYL500 MG PO; +LEVOFLOXACIN500 MG PO; +PROMETHAZINE W473 ML PO
[2019-09-05 08:34] LABS: BASOPHILS 0.6 % (0-2); EOSINOPHILS 1.1 % (0-7); IMMATURE GRANULOCYTES 0.1 % (0-5); LYMPHOCYTES 20.6 % (15-50); MCH 30.7 pg (26.0-34.0); MCHC 33.3 g/dL (31.0-37.0); MEAN PLATELET VOLUME 9.3 fL (7.4-10.4); MONOCYTES 5.6 % (2-11); RBC 4.89 10x6/uL (4.00-5.40); WBC 7.9 10x3/uL (4.8-10.8)
[2019-09-05 08:43] LABS: PLATELET COUNT 281 10x3/uL (130-400)
[2019-09-05 08:50] LABS: ALBUMIN 3.9 g/dL (3.4-5.0); ALKALINE PHOSPHATASE 83 U/L (30-120); ALT (SGPT) 28 U/L (10-68); AMYLASE - SERUM 33 U/L (25-115); BILIRUBIN - INDIRECT 0.32 mg/dL (0.00-1.00); BILIRUBIN - TOTAL 0.37 mg/dL (0.2-1.3); CALC OSMOLALITY 272 mosm/kg (275-300); CALCIUM 8.9 mg/dL (8.5-10.1); CARBON DIOXIDE 27.9 mmol/L (21.0-32.0); CHLORIDE - SERUM 100 mmol/L (98-107); CREATININE - SERUM 0.8 mg/dL (0.6-1.3); GLUCOSE 133 mg/dL (74-106); LIPASE 176 U/L (73-393); PROTEIN - SERUM 7.8 g/dL (6.4-8.2); SODIUM 136 mmol/L (136-145); UREA NITROGEN 10 mg/dL (7-18); eGFR NON AFRICAN AMERICAN 76 mL/min (90-120)
[2019-09-05 09:14] LABS: BILIRUBIN - DIRECT 0.05 mg/dL (0.00-0.30); POTASSIUM - SERUM 2.9 mmol/L (3.5-5.1)
== END | disposition home or self-care (01) ==
LOC: D.LAB 08:05 → D.MRI 09:00
PROVIDERS: ATTEND Internal Medicine Gastroenterology
DX: K76.0 Fatty (change of) liver, not elsewhere classified (principal); K86.2 Cyst of pancreas